=== PATIENT | female | born 1995 ===

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

== ENCOUNTER 2017-02-04 10:20 | Outpatient (CLI) | payer OTHER, SELFPAY ==
[~2017-02-04] VITALS: Ht 157.5 cm; Wt 55.0 kg
[2017-02-04 10:29] VITALS: BP 130/85
== END 2017-02-04 11:00 | disposition home or self-care (01) ==
LOC: M LDO 10:20
PROVIDERS: ATTEND Obstetrics & Gynecology
DX: O47.1 False labor at or after 37 completed weeks of gestation (principal); Z3A.40 40 weeks gestation of pregnancy

== ENCOUNTER 2017-02-06 03:03 | Inpatient (IN) | payer OTHER, SELFPAY ==
[2017-02-06] VITALS (42 sets, daily range): BP systolic 96–133; BP diastolic 57–86
[~2017-02-06] VITALS: Ht 157.5 cm; Wt 55.0 kg
[2017-02-06] MEDS ORDERED: PENICILLIN G POTASSIUM IV 5 MU in D5W MINI-BAG PLUS 100 ML IV STA (05:28)
[2017-02-06] MEDS ORDERED: LACTATED RINGER'S 1000 ML IV ONE (05:30)
[2017-02-06 06:14] LABS: MEAN CORPUSCULAR HEMOGLOBIN 28.6 pg (27.0-33.0); MEAN CORPUSCULAR HGB CONC 34.5 g/dl (32.0-36.5); MEAN CORPUSCULAR VOLUME 82.8 fl (80.0-96.0); RED CELL DISTRIBUTION WIDTH 15.2 % (11.5-14.5); WHITE BLOOD COUNT 10.9 K/mm3 (4.0-10.0)
[2017-02-06] MEDS: LR 1,000 ML IV SCH ×3 (07:13→17:26)
[2017-02-06] MEDS ORDERED: PRENTAB9 PO (07:37)
--- NOTE | 2017-02-06 07:55 | HPE ---
DATE OF ADMISSION: 02/06/2017 HISTORY: 21-year-old 1, para 1, last menstrual period (LMP) 04/27/2016, expected date of confinement (EDC) 02/01/2017 at 40 and 5 with a history of contractions. She is a late transfer of care in at 27 weeks. LABS: Show A positive. HIV negative. Hepatitis negative. RPR negative. Rubella immune. Urine negative. Gonorrhea and Chlamydia negative. One-hour glucose 44. GBS is positive. Urine is 1.005, pH 7+, with leukocytes. Temperature is 99.1, respirations 21 and blood pressure 123/81. Pulse is 86. She is mindful of her contractions. Symphysis fundus height is 40. Four quadrant bowel sounds are noted. Occiput anterior (OA), 2 cm, posterior, -3 station, 80% effaced Category one strip. The rest of the examination is unremarkable. Normocephalic, atraumatic. Neck full range of motion. Pupils equal and reactive to light. Distal pulses are symmetric. No evident of deep vein thrombosis (DVT), pulmonary embolus (PE) or superficial phlebitis. Lungs are clear bilaterally to bases. No wheezes or rhonchi. No costovertebral angle (CVA) tenderness. Four quadrant bowel sounds are noted. Appropriate symphysis fundus height and nontender uterus in between contractions. No rashes, lesions or pruritus. No arthralgia or myalgia. No complaints of cough, wheeze, shortness of breath or dyspnea on exertion. No chest pain. No bleeding. Neuro complete. No incontinency, urgency or frequency. No nausea, vomiting, diarrhea or constipation. No diabetic issues. No BEVERAGE DISTILLER issues. PAST MEDICAL/PAST SURGICAL/FAMILY HISTORY: Noncontributory. She does not smoke, drink or abuse drugs. There is no domestic violence. She is to a soldier. Our plan of management is to recheck this lady in an hour and hydrate her. If the contractions space out and category one strip, she will be sent to her appointment at 11 o'clock this morning. If she progresses in the next hour to hour and a half, we will admit her as active labor and prophylactically treat her for GBS positive.
--- NOTE | 2017-02-06 10:30 | IPNPDOC ---
Text Note Date of Service The patient was seen on 02/06/17. NOTE NST Cat 1, has been walking Cx 3-4/90/-1/vtx well applied recheck in ~4 hrs, doing well. Sessions Clyde KENNEDY, I+O Clyde PERES I+O Laboratory Tests 02/06/17 05:40 Red Blood Count 4.28, Mean Corpuscular Volume 82.8, Mean Corpuscular Hemoglobin 28.6, Mean Corpuscular Hemoglobin Concent 34.5, Red Cell Distribution Width 15.2 H Vital Signs Date Time Temp Pulse Resp B/P (MAP) Pulse Ox O2 Delivery O2 Flow Rate FiO2 02/06/17 04:16 83 18 131/84 (100) 02/06/17 03:19 99.1 I&O- Last 24 Hours up to 6 AM 02/07/17 06:00 Intake Total 950 ml Balance 950 ml FABRIZIO SOL MD Feb 06, 2017 10:30
[2017-02-06] MEDS: PENICILLIN G POTASSIUM IV 2.5 MU in D5W 100 ML IV SCH ×3 (10:41→18:27)
[2017-02-06] MEDS ORDERED: FENTANYL 2MCG/ML ROPIVACAINE 0.2% IN 0.9% NACL 200ML IVBAG As Ordered ONE (14:44)
[2017-02-06] MEDS ORDERED: ONDANSETRON 4MG/2ML VIAL (J2405) IV PRN (15:45)
[2017-02-06] MEDS ORDERED: LACTATED RINGER'S 1000 ML IV PRN (15:45)
[2017-02-06] MEDS ORDERED: NALOXONE INJ 0.4 MG/1 ML VIAL (J2310) IV PRN (15:45)
[2017-02-06] MEDS ORDERED: diphenhydrAMINE INJ 50MG/ML VIAL (J1200) IV PRN (15:45)
[2017-02-06] MEDS ORDERED: FENTANYL/ROPIVACAINE/NACL BAG 200 ML EPIDURAL SCH (15:45)
[2017-02-06] MEDS ORDERED: EPIDURAL/PCA KEYS XX PRN (15:45)
[2017-02-06] MEDS ORDERED: REFRIGERATOR IV KEYS XX PRN (15:45)
[2017-02-06] MEDS ORDERED: ePHEDrine SULFATE 25 MG/5 ML(5MG/ML) SYRINGE IV PRN (15:45)
[2017-02-06] MEDS ORDERED: EPIDURAL COMMENT XX SCH (15:45)
--- NOTE | 2017-02-06 17:52 | IPNPDOC ---
Text Note Date of Service The patient was seen on 02/06/17. NOTE Now s/p epidural, feeling well NST Cat 1, reg ctx's. Cx 7/100/0 AROM with thin mec noted Doing well, recheck in 2 hrs, sooner prn Sessions VS,Clyde, I+O VS, Clyde, I+O Laboratory Tests 02/06/17 05:40 Red Blood Count 4.28, Mean Corpuscular Volume 82.8, Mean Corpuscular Hemoglobin 28.6, Mean Corpuscular Hemoglobin Concent 34.5, Red Cell Distribution Width 15.2 H Vital Signs Date Time Temp Pulse Resp B/P (MAP) Pulse Ox O2 Delivery O2 Flow Rate FiO2 02/06/17 13:04 59 18 114/60 (78) 02/06/17 11:27 98.1 I&O- Last 24 Hours up to 6 AM 02/07/17 06:00 Intake Total 3060 ml Balance 3060 ml SESSIONS,FABRIZIO Rust MD Feb 06, 2017 17:52
[2017-02-06] MEDS ORDERED: LR 1,000 ML IV SCH (20:15)
[2017-02-06] MEDS ORDERED: OXYTOCIN DRIP 30 UNITS in APPROPRIATE DILUENT 1 EA IV SCH ×2 (20:15→22:06)
--- NOTE | 2017-02-06 20:15 | IPNPDOC ---
Text Note Date of Service The patient was seen on 02/06/17. NOTE NST Cat 1 Cx 8/100/0 Minimal change, will start pitocin, recheck after ~2 hrs effective pitocin Sessions MD PERES,Clyde, I+O VSClyde I+O Laboratory Tests 02/06/17 05:40 Red Blood Count 4.28, Mean Corpuscular Volume 82.8, Mean Corpuscular Hemoglobin 28.6, Mean Corpuscular Hemoglobin Concent 34.5, Red Cell Distribution Width 15.2 H Vital Signs Date Time Temp Pulse Resp B/P (MAP) Pulse Ox O2 Delivery O2 Flow Rate FiO2 02/06/17 18:24 98.2 78 16 108/65 (79) I&O- Last 24 Hours up to 6 AM 02/07/17 06:00 Intake Total 3460 ml Output Total 850 ml Balance 2610 ml EBENEZER,FABRIZIO Rust MD Feb 06, 2017 20:15
--- NOTE | 2017-02-06 22:13 | DNPDOC ---
[facility] Delivery Note Delivery Note DATE OF DELIVERY: [id number] @ 2149 PREDELIVERY DIAGNOSIS: 40 5/7 weeks' gestation and labor. POST DELIVERY DIAGNOSIS: Delivered. PROCEDURE: Spontaneous vaginal delivery FINDINGS: wt pending, male infant, Score 9/9 DELIVERY SUMMARY: Pushed very well. No delay of the vtx or ant/post shoulders. To abd. Good tone and cry. Cord C/C by FOB. Placenta intact with slight traction and fundal massage. Pit going wide open, fundus firm. 1-2 cm lac on inner left labia. Repaired with 3-0 vicryl. Good cosmesis/hemostasis. Sessions MD SESSIONS,FABRIZIO Rust MD Feb 06, 2017 22:13
[2017-02-06] MEDS ORDERED: RHOGAM 300 MCG (1500 IU) INJ (J2790) IM SCH (22:15)
[2017-02-06] MEDS ORDERED: MEASLES,MUMPS,RUBELLA VACCINE INJ (MMR-II) (90707) SC SCH (22:15)
[2017-02-06] MEDS ORDERED: ACETAMINOPHEN TAB 650MG DOSE (2X325MG) PO PRN (22:15)
[2017-02-06] MEDS ORDERED: DIBUCAINE 1% OINTMENT 30GM TOP PRN (22:15)
[2017-02-06] MEDS ORDERED: IBUPROFEN 800 MG TAB PO PRN (22:15)
[2017-02-06] MEDS ORDERED: METOCLOPRAMIDE INJ 10MG/2ML VIAL (J2765) IV PRN (22:15)
[2017-02-07 00:54] VITALS: BP 112/67
[2017-02-07 06:36] VITALS: BP 114/79
--- NOTE | 2017-02-07 06:43 | IPNPDOC ---
Text Note Date of Service The patient was seen on 02/07/17. NOTE PPD1 prog note States feeling well, no complaints. No heavy VB. Pain controlled. Voiding, ambulatory. Bonding well and feeding well. VSSAF CTAB RRR Ut at U-2, firm Ext no CCE a/p: Doing well. routine pp care. Sessions VS,Clyde, I+O VSClyde, I+O Vital Signs Date Time Temp Pulse Resp B/P (MAP) Pulse Ox O2 Delivery O2 Flow Rate FiO2 02/07/17 06:36 98.0 76 16 114/79 (91) SESSIONS,FABRIZIO Rust MD Feb 07, 2017 06:43
[2017-02-07] MEDS: DOCUSATE SODIUM 100 MG CAP PO SCH ×2 (08:42→21:34)
[2017-02-07] MEDS: PRENATAL VITAMINS CHEWABLE TABLET PO SCH (08:42)
--- NOTE | 2017-02-07 13:10 | IPN ---
DATE: 02/07/2017 This lady and her requested circumcision of their male . After discussing the risks and benefits of circumcision, the medical and nonmedical indications, penile block, and aftercare, expressed understanding of the penile block and aftercare. Signed and witnessed the consent form. We await the clearance by the jitney driver.
[2017-02-07 17:44] VITALS: BP 127/85
[2017-02-08 06:00] VITALS: BP 113/74
[2017-02-08] MEDS ORDERED: INFLUENZA QUADRIVALENT PF VACCINE 0.5ML SYRINGE (90686) IM ONE (09:00)
[2017-02-08] MEDS: DOCUSATE SODIUM 100 MG CAP PO SCH (09:08)
[2017-02-08] MEDS: PRENATAL VITAMINS CHEWABLE TABLET PO SCH (09:08)
[2017-02-08] MEDS ORDERED: COLA100C5 PO (12:01)
[2017-02-08] MEDS ORDERED: ACET50TA PO (12:01)
[2017-02-08] MEDS ORDERED: IBUP-1114 PO (12:01)
== END 2017-02-08 13:30 | disposition home or self-care (01) | DRG 775 ==
LOC: M LDO 03:03 → M LDI 05:23 → M OBS 23:49
PROVIDERS: ADMIT Obstetrics & Gynecology; ATTEND Obstetrics & Gynecology
PROC: 10E0XZZ Delivery of Products of Conception, External Approach (ICD-10-PCS; principal; 2017-02-06)
PROC: 0HQ9XZZ Repair Perineum Skin, External Approach (ICD-10-PCS; 2017-02-06)
DX: O70.0 First degree perineal laceration during delivery (principal); O48.0 Post-term pregnancy; Z37.0 Single live birth; Z3A.40 40 weeks gestation of pregnancy; O69.82X0 Labor and delivery complicated by other cord entanglement, without compression, not applicable or unspecified